=== PATIENT | male | born 1960 | race Two or more races ===

== ENCOUNTER → 2018-02-05 | Outpatient (CLI) | payer OTHER ==
--- NOTE | 2018-02-05 12:12 | RAD ---
MR#: [id number] Date of Study: 02/05/2018 Ordering Physician: KEIRA INIGUEZ, Referring Physician: PAMELA MORELAND Tech: SU Bradley ARRT (Rajinder) (N) APPROVED REPORT Test Type: Exercise Stress Nurse/Tech: HERBER Jose Test Indications: typical Angina Cardiac History: Hypertension, High cholesterol Medications: See Electronic Medical Record Medical History: See Electronic Medical Record Resting ECG: SR Resting Heart Rate: 76 bpm Resting Blood Pressure: 156/96mmHg Pretest Chest Pain: None Nurse/Tech Notes + FOR CP AT [facility] HR 3MM ST DEPRESSION POOR EXERCIISE CAPACITY Consent: The procedure was explained to the patient in lay terms. Informed consent was witnessed. Jaden eout was entered into [employer]. History and Stress Test performed by SU Bradley, COOPER (R) (N) Stress Symptoms CP AT [facility] HR ST/T CHANGES Chest pain typical of angina occurred (Severity , min duration). POST EXERCISE Reason for Termination: Reached target heart rate, FATIGUE Target HR: Yes Max HR: 149 bpm 107% of Maximum Predicted HR: 138 bpm Exercise duration: 3:30 min:sec, 1 Stage Exercise capacity: 4.6METs Max Blood Pressure: 174/90mmHg Chest Pain: Yes. CP AT [facility] HR ST Change: Yes. 3MM DEPRESSION Deviation: 3 mm INTERPRETATION Stress EKG Conclusion: SR, NS ST/T CHANGES + FOR CP AT [facility] HR 3MM ST DEPRESSION POOR EXCERCISE CAPACITY Imaging Protocol IMAGE PROTOCOL: Stress Tc-99m/rest Tc-99m 2 days Rest: Stress: Viability: Radiopharm.Tc99m Sestamibi Dose16.4mCi Img Date 02/05/2018 Inj-Img [id number]. Stress Admin Site: IV - Left AntecubitalAdministrator: SU Bradley, COOPER (R)(N) STRESS DATA End Diast. Vol.98.0mlAv. Heart Zrmx526.0bpm LVEDV index BSA1.0mlCardiac Output0.1L/min End Syst. Vol.28.0mlCO Index BSA7.4L/min LVESV index BSA0.0mlMyocardial Tyvi949.0g Eject. Jrjfyerd13.0% Stress Rates Pk. Fill Rate3.72EDV/secLVtime Pk. Fill 71.84msec Pk. Empty Rate5.54ESV/secLVtime Pk. Vccwb879.29msec 1/3 Pk. Fill2.40EDV/sec Stress Scores Regional WT0.00Summed WT1.00 Regional WM0.00Summed WM4.00 LV Perfusion There is a moderate sized, severe in intensity, mid to distal anterior and anteroseptal defect sugges tive of impaired perfusion. Wall Motion Normal wall motion. EF > 70% LV Perf. Quant 17 Seg. SSS6.00 Stress Defect Extent (% LAD)38.10Rest Defect Extent (% LAD)Rev. Defect Extent (% LAD)1.30 Stress Defect Extent (% LCX) 6.30Rest Defect Extent (% LCX)Rev. Defect Extent (% LCX)0.00 Stress Defect Extent (% RCA)0.00Rest Defect Extent (% RCA)Rev. Defect Extent (% RCA)0.00 Stress Defect Extent (% REJI)19.30Rest Defect Extent (% REJI)Rev. Defect Extent (% REJI)0.40 Other Information Quality:Average Risk Assessment: Moderate-High Risk Conclusion 1. Significant EKG changes in the lateral leads suggestive of ischemia with [address] segment depressio n 2. Poor exercise capacity 3. Moderate sized defect in the anteroseptal wall. 4. Normal EF at > 70% 5. Moderate to high risk study. Signed by : Keira Iniguez, Electronically Approved : 02/05/2018 12:11:29
== END | disposition home or self-care (01) ==
LOC: NM 09:38
PROVIDERS: ATTEND Internal Medicine Cardiovascular Disease
DX: I20.9 Angina pectoris, unspecified (principal); I10 Essential (primary) hypertension
CPT/HCPCS: 78452; 93017; 96374; A9500

== ENCOUNTER → 2018-03-14 | Outpatient (CLI) | payer OTHER ==
--- NOTE | 2018-03-14 17:07 | RAD ---
MR#: [id number] Date of Study: 03/14/2018 Ordering Physician: KEIRA GREER, Referring Physician: KEIRA GREER, Tech: Lydia Read, STEVAN, RVT, RTR APPROVED REPORT Lower Extremity Venous Study for DVT Patient Location: OUT-PATIENT Indications Stasis Disease The bilateral lower extremity deep veins were evaluated for thrombus with color Doppler, spectral and grayscale images. On the right the grayscale images of the common femoral, superficial femoral and popliteal veins do n ot demonstrate any evidence of thrombus and these veins appear to be compressible. The below-knee vei ns were not well visualized but grossly appear to be compressible. Spectral imaging and color Doppler do not reveal any evidence of obstruction to flow with normal respirophasic variation above the knee . Below the knee there is spontaneous flow noted. On the left, the grayscale images of the common femoral, superficial femoral and popliteal veins do n ot demonstrate any evidence of thrombus and these veins appear to be compressible. The below-knee vei ns again were not well visualized but grossly appear to be compressible. Spectral imaging and color D oppler do not reveal any evidence of obstruction to flow with normal respirophasic variation above th e knee. The below-knee veins demonstrate spontaneous flow. Heredia scale images of the left greater saphenous vein area from the proximal to mid segment reveals di ffuse hypoechoic areas suggestive of seroma or superficial thrombophlebitis consistent with recent hi story of great saphenous vein harvesting for bypass. Critical Notification Critical Value: No <Conclusion> 1. No evidence of DVT in the bilateral lower extremities. 2. Significant inflammatory changes in the area of the proximal to mid great saphenous vein consisten t with recent harvesting. Signed by : Keira Greer, Electronically Approved : 03/14/2018 17:06:53
== END | disposition home or self-care (01) ==
LOC: US 09:42
PROVIDERS: ATTEND Internal Medicine Cardiovascular Disease
DX: R60.0 Localized edema (principal); Z95.1 Presence of aortocoronary bypass graft
CPT/HCPCS: 93971

== ENCOUNTER → 2018-07-08 | Outpatient (CLI) | payer OTHER ==
[2018-07-08 09:47] LABS: ALBUMIN 3.6 g/dL (3.4-5.0); ALBUMIN/GLOBULIN RATIO 0.8 (1.0-1.7); CALCIUM 9.4 mg/dL (8.5-10.1); POTASSIUM 3.5 mmol/L (3.5-5.1); TOTAL BILIRUBIN 0.5 mg/dL (0.2-1.0)
== END | disposition home or self-care (01) ==
LOC: LAB 08:39
PROVIDERS: ATTEND Internal Medicine Cardiovascular Disease
DX: I10 Essential (primary) hypertension (principal); Z95.1 Presence of aortocoronary bypass graft
CPT/HCPCS: 36415; 80053; 80061